=== PATIENT | male | born 1955 | race Caucasian/White ===

== ENCOUNTER 2020-11-01 16:09 | Emergency (ER) | payer OTHER ==
[~2020-11-01] VITALS: Ht 172.7 cm; Wt 108.9 kg
[~2020-11-01 16:09] MED LIST: AVELOX ABC PAC400 MG PO; KETO10TA2 PO
[2020-11-01] MEDS ORDERED: BACTRIM DS TAB1 EACH PO (19:46)
[2020-11-01] MEDS ORDERED: ACETAMINOPHEN650 M2 PO (19:46)
[2020-11-01] MEDS ORDERED: ORPHENADRINE C100 MG PO (19:46)
[2020-12-06] MEDS ORDERED: TYLENOL 120MG120 MG (13:43)
== END 2020-11-01 21:09 | disposition home or self-care (01) ==
LOC: ER 16:09
DX: S96.812A Strain of other specified muscles and tendons at ankle and foot level, left foot, initial encounter (principal); L03.116 Cellulitis of left lower limb; R23.8 Other skin changes; X50.9XXA Other and unspecified overexertion or strenuous movements or postures, initial encounter; Y93.89 Activity, other specified; Y92.89 Other specified places as the place of occurrence of the external cause; Y99.8 Other external cause status; Z20.828 Contact with and (suspected) exposure to other viral communicable diseases

== ENCOUNTER 2020-11-13 13:54 | Outpatient (CLI) | payer OTHER ==
[~2020-11-13 13:54] MED LIST changes: +ACETAMINOPHEN650 M2 PO; +BACTRIM DS TAB1 EACH PO; +ORPHENADRINE C100 MG PO
== END 2020-11-13 16:10 | disposition home or self-care (01) ==
LOC: NUCLEAR 13:54
PROVIDERS: ATTEND General Practice
DX: R22.43 Localized swelling, mass and lump, lower limb, bilateral (principal)

== ENCOUNTER 2024-02-11 07:53 | Outpatient (CLI) | payer OTHER ==
[~2024-02-11 07:53] MED LIST changes: +TYLENOL 120MG120 MG
== END 2024-02-11 08:07 | disposition home or self-care (01) ==
LOC: TOM 07:53
PROVIDERS: ATTEND Specialist
DX: R22.1 Localized swelling, mass and lump, neck (principal)

== ENCOUNTER 2024-05-05 08:05 | Outpatient (CLI) | payer OTHER ==
[2024-05-05 08:47] LABS: CREATININE SERUM 0.93 mg/dL (0.70-1.30)
== END 2024-05-05 08:06 | disposition home or self-care (01) ==
LOC: LAB 08:05
PROVIDERS: ATTEND Radiology Diagnostic Radiology
DX: C77.0 Secondary and unspecified malignant neoplasm of lymph nodes of head, face and neck (principal); R22.1 Localized swelling, mass and lump, neck

== ENCOUNTER 2024-05-05 09:32 | Outpatient (CLI) | payer OTHER | END 2024-05-05 10:12 | disposition home or self-care (01) | LOC: MRI 09:32 | DX: C77.0 Secondary and unspecified malignant neoplasm of lymph nodes of head, face and neck (principal); R22.1 Localized swelling, mass and lump, neck | CPT/HCPCS: 70543; Q9965; 70542 ==

== ENCOUNTER 2024-05-13 07:23 | Outpatient (CLI) | payer OTHER | END 2024-05-13 07:24 | disposition home or self-care (01) | LOC: NUCLEAR 07:23 | PROVIDERS: ATTEND Specialist | DX: I70.213 Atherosclerosis of native arteries of extremities with intermittent claudication, bilateral legs (principal); I80.3 Phlebitis and thrombophlebitis of lower extremities, unspecified ==

== ENCOUNTER 2024-05-14 07:27 | Outpatient (CLI) | payer OTHER | END 2024-05-14 08:05 | disposition home or self-care (01) | LOC: NUCLEAR 07:27 | PROVIDERS: ATTEND Specialist | DX: I87.2 Venous insufficiency (chronic) (peripheral) (principal); I70.213 Atherosclerosis of native arteries of extremities with intermittent claudication, bilateral legs; I80.9 Phlebitis and thrombophlebitis of unspecified site ==